=== PATIENT | female | born 1980 | race Caucasian/White ===

== ENCOUNTER 2019-02-16 13:43 | Emergency (ER) | payer MEDICAID ==
[~2019-02-16] VITALS: Ht 160 cm; Wt 78.2 kg
[~2019-02-16 13:43] MED LIST: FERR28TA PO; PREN1TAB17 PO
[2019-02-16 13:46] VITALS: BP 151/63; PULSE 98; RESP 18; Ht 160 cm; Wt 78.2 kg
[2019-02-16] MEDS ORDERED: PRED20TA PO (14:25)
[2019-02-16] MEDS ORDERED: BEN25 PO (14:25)
--- NOTE | 2019-02-16 14:29 | ERD ---
ER Documentation Chief Complaint Chief Complaint bee sting yesterday on left 3rd finger swollen painful HPI 38-year-old female was stung by bee on her left ring finger yesterday. She has redness and pain. She has restricted range of motion mildly due to swelling but no fevers, streaking, additional symptoms. Tetanus is not up-to-date. ROS All systems reviewed and are negative except as per history of present illness. Medications Home Meds Active Scripts Diphenhydramine Hcl* (Benadryl*) 25 Mg Cap, 25 MG PO Q6, #15 CAP Prov:TAMELA OWEN MD 02/16/19 Prednisone* (Prednisone*) 20 Mg Tab, 40 MG PO DAILY for 4 Days, TAB Start February 17, 2019 Prov:TAMELA OWEN MD 02/16/19 Reported Medications Ferrous Sulfate (Ferrous Sulfate) 1 Tab Tablet, 1 TAB PO DAILY 06/18/13 Vit-Iron Fumarate-FA ( Tablet) 1 Each Tablet, 1 EACH PO DAILY 06/18/13 Allergies Allergies: Coded Allergies: No Known Drug Allergy (Verified Allergy, 06/18/13) PMhx/Soc Medical and Surgical Hx: pt denies Medical Hx, pt denies Surgical Hx Hx Alcohol Use: No Hx Substance Use: No Hx Tobacco Use: No Smoking Status: Never smoker FmHx Family History: No diabetes, No coronary disease, No other Physical Exam Vitals Vital Signs Date Temp Pulse Resp B/P (MAP) Pulse Ox O2 O2 Flow FiO2 Time Delivery Rate 02/16/19 99.0 98 18 151/63 99 13:46 (92) Physical Exam Const: No acute distress Head: Atraumatic Eyes: Normal Conjunctiva ENT: Normal External Ears, Nose and Mouth. Neck: Full range of motion. No meningismus. Resp: Clear to auscultation bilaterally Cardio: Regular rate and rhythm, no murmurs Abd: Soft, non tender, non distended. Normal bowel sounds Skin: No petechiae or rashes Back: No midline or flank tenderness Ext: No cyanosis, or edema mild swelling and irritation of left middle finger to the MCP joint. Cap refill is less than 2 seconds. Restricted motion mildly due to swelling but no proximal tendon tenderness. Neur: Awake and alert Psych: Normal Mood and Affect Results 24 hrs Current Medications Medications Dose Sig/Alka Start Time Status Last (Trade) Ordered Route PRN Stop Time Admin Dose Reason Admin 650 mg ONCE ONCE 02/16/19 DC 02/16/19 Acetaminophen PO 14:30 02/16/19 14:28 (Tylenol 14:31 Tab) Prednisone 60 mg ONCE ONCE 02/16/19 DC 02/16/19 (Prednisone) PO 14:30 02/16/19 14:28 14:31 25 mg ONCE ONCE 02/16/19 DC Diphenhydrami PO 14:30 02/16/19 ne HCl 14:30 (Benadryl) Diphtheria/ 0.5 ml ONCE ONCE 02/16/19 DC 02/16/19 Tetanus/Acell IM* 14:30 02/16/19 14:31 Pertussis 14:31 (Adacel) Procedures/MDM Patient presents with what appears to be a local reaction to bee sting her left third digit. Is no evidence of his, signs of infection, anaphylaxis additional current concerning symptoms. She will be treated with prednisone, Benadryl, instructions for ice and return precautions in the next day for worsening redness, fevers, streaking, new or worsening symptoms. She was given a tetanus booster. The patient was stable with no new complaints during the ER course. Clinically, there is no current evidence to suggest meningitis, sepsis, acute abdomen, pneumonia, stroke, acute coronary syndrome, pulmonary embolism, aortic dissection or any other emergent condition appearing to require further evaluation or hospitalization. Patient counseled regarding my diagnostic impression and care plan. Prior to discharge all questions answered. Pt agrees with treatment plan and understands strict return precautions. Pt is instructed to follow up with primary care provider within 24-48 hours. Precautionary instructions provided including instructions to return to the ER if not improving or for any worsening or changing symptoms or concerns. Departure Diagnosis: Primary Impression: Bee sting Encounter type: initial encounter Injury intent: undetermined intent Qualified Codes: T63.444A - Toxic effect of venom of bees, undetermined, initial encounter Additional Impression: Bee sting reaction Encounter type: initial encounter Injury intent: undetermined intent Qualified Codes: T63.444A - Toxic effect of venom of bees, undetermined, initial encounter Condition: Stable Patient Instructions: Allergic Reaction, Insect (Local) Referrals: NO PRIMARY,CARE PHYSICIAN (PCP) Additional Instructions: ZOEY STEEN. REGRESA PARA MAS LEON, FIEBRE, NUEVA SIMPTOMAS. TAMELA OWEN MD Feb 16, 2019 14:29
[2019-02-16] MEDS ORDERED: DIPHTH/TET/ACEL PERTUSS (ADULT) 0.5 ML VIAL IM* ONE (14:30)
[2019-02-16] MEDS ORDERED: DIPHENHYDRAMINE 25 MG CAP PO ONE (14:30)
[2019-02-16] MEDS ORDERED: predniSONE 20 MG TAB PO ONE (14:30)
[2019-02-16] MEDS ORDERED: ACETAMINOPHEN 325 MG TAB PO ONE (14:30)
== END 2019-02-16 14:45 | disposition home or self-care (01) ==
LOC: FTE 13:43
DX: T63.444A Toxic effect of venom of bees, undetermined, initial encounter (principal); Z23 Encounter for immunization
CPT/HCPCS: 90715; J7512; Z7610; 90471